=== PATIENT | male | born 1980 | race Caucasian/White ===

== ENCOUNTER 2021-06-01 09:15 | Emergency (ER) | payer OTHER ==
[~2021-06-01] VITALS: Ht 188 cm; Wt 122.5 kg
[2021-06-01 09:25] VITALS: BP 159/106
[2021-06-01] MEDS ORDERED: HYDROcodone/APAP 5/325 MG 1 TAB TAB PO ONE (10:20)
--- NOTE | 2021-06-01 10:24 | NUR ---
PT PLACED IN RIGHT ARM SLING
[2021-06-01] MEDS ORDERED: IBUP-1842 PO (11:08)
[2021-06-01] MEDS ORDERED: HYDR-5080 PO (11:08)
[2021-06-01 11:20] VITALS: BP 147/88
--- NOTE | 2021-06-01 11:22 | NUR ---
Patient discharged with v/s stable. Written and verbal after care instructions given and explained. Patient alert, oriented and verbalized understanding of instructions. Ambulatory with steady gait. All questions addressed prior to discharge. ID band removed. Patient advised to follow up with PMD. Rx of NORCO,IBU given. Patient educated on indication of medication including possible reaction and side effects. Opportunity to ask questions provided and answered.
== END 2021-06-01 11:22 | disposition home or self-care (01) ==
LOC: MED 09:15
DX: M25.511 Pain in right shoulder (principal); I10 Essential (primary) hypertension; Z98.890 Other specified postprocedural states; Z88.1 Allergy status to other antibiotic agents
CPT/HCPCS: 73030; 99283

== ENCOUNTER 2022-11-25 17:38 | Emergency (ER) | payer MEDICAID, OTHER ==
[~2022-11-25] VITALS: Ht 188 cm; Wt 154.7 kg
[~2022-11-25 17:38] MED LIST: HYDR-5080 PO; IBUP-1842 PO
[2022-11-25 17:51] VITALS: BP 159/82
[2022-11-25] MEDS ORDERED: LIDOCAINE 5% 1 EA PATCH TP ONE (18:35)
[2022-11-25] MEDS ORDERED: KETOROLAC 30 MG/ML VIAL IM ONE (18:35)
[2022-11-25] MEDS ORDERED: ACETAMINOPHEN EXTRA STRENGTH 500 MG TAB PO ONE (18:35)
--- NOTE | 2022-11-25 18:55 | NUR ---
PT CALLED IN LOBBY AND OUTSIDE, NO ANSWER
--- NOTE | 2022-11-25 19:00 | NUR ---
PT UNABLE TO LOCATE
--- NOTE | 2022-11-25 19:10 | NUR ---
UNABLE TO LOCATE FOR SLING APPLICATION.
--- NOTE | 2022-11-25 19:20 | NUR ---
PATIENT ELOPED FROM FACILITY. DISCHARGE INSTRUCTIONS NOT GIVEN TO PATIENT. DR. ADAMS NOTIFIED.
== END 2022-11-25 19:20 | disposition left against medical advice (07) ==
LOC: MED 17:38
DX: M25.511 Pain in right shoulder (principal); Z88.8 Allergy status to other drugs, medicaments and biological substances; Z79.899 Other long term (current) drug therapy
CPT/HCPCS: 73030; 99283